=== PATIENT | male | born 1975 | race Caucasian/White ===

== ENCOUNTER → 2020-10-30 | Outpatient (CLI) | payer OTHER ==
--- NOTE | 2020-10-30 17:05 | XR ---
EXAMINATION TYPE: XR lumbosacral spine 5 views DATE OF EXAM: 10/30/2020 Comparison: None Clinical History: 44-year-old male LUMBAR RADICULOPATHY Findings: Advanced hypertrophic facet arthropathy mid to lower lumbar spine. Mild degenerative disc disease thr oughout. Trace grade 1 retrolisthesis L2-L3. Vertebral body heights are preserved. No pars interartic ularis defect seen. Impression: Hypertrophic facet arthropathy mid to lower lumbar spine. Degenerative grade 1 retrolisthesis L2-L3. Mild degenerative disc disease throughout.
== END | disposition home or self-care (01) ==
LOC: RADXRYALE 15:51
PROVIDERS: ATTEND Nurse Practitioner
DX: M51.16 Intervertebral disc disorders with radiculopathy, lumbar region (principal); M43.16 Spondylolisthesis, lumbar region; M47.26 Other spondylosis with radiculopathy, lumbar region
CPT/HCPCS: 72110